=== PATIENT | male | born 1995 | race Two or more races ===

== ENCOUNTER 2020-12-18 09:35 | Emergency (ER) | payer OTHER ==
[~2020-12-18] VITALS: Ht 180.3 cm; Wt 90.7 kg
[2020-12-18] MEDS ORDERED: ACID REDUCER20 M1 PO (09:56)
== END 2020-12-18 14:30 | disposition home or self-care (01) ==
LOC: ER 09:35
DX: S13.4XXA Sprain of ligaments of cervical spine, initial encounter (principal); S39.012A Strain of muscle, fascia and tendon of lower back, initial encounter; M54.6 Pain in thoracic spine; R51.9 Headache, unspecified; V49.88XA Car occupant (driver) (passenger) injured in other specified transport accidents, initial encounter; Y93.89 Activity, other specified; Y92.488 Other paved roadways as the place of occurrence of the external cause; Y99.8 Other external cause status